=== PATIENT | male | born 1955 | race Caucasian/White ===

== ENCOUNTER 2023-08-22 09:44 | Outpatient (CLI) | payer MEDICARE, SELFPAY | END 2023-08-22 09:45 | disposition home or self-care (01) | PROVIDERS: PCP Family Medicine; Visit Provider Family Medicine | DX: Z12.5 Encounter for screening for malignant neoplasm of prostate (principal); E78.2 Mixed hyperlipidemia; E11.9 Type 2 diabetes mellitus without complications | CPT/HCPCS: 80053; 80061; G0103 ==